=== PATIENT | female | born 1935 | race Caucasian/White ===

== ENCOUNTER 2017-04-29 13:04 | Emergency (ER) | payer MEDICARE, BC ==
[2017-04-29] MEDS: Nitroglycerin 0.4 MG Tab.SL SL PRN ×2 (13:06→13:12)
[2017-04-29] MEDS ORDERED: Morphine 2 MG/ML Syringe IVPUSH PRN (13:14)
[2017-04-29] MEDS ORDERED: Heparin Sodium/D5W 25,000 UNITS/500 ML BAG IV SCH ×2 (13:30→13:50)
[2017-04-29] MEDS: Sodium Chloride 0.9% 1,000 ML IV SCH ×2 (13:30→14:00)
[2017-04-29] MEDS ORDERED: Tenecteplase 50 MG Kit IV ONE (13:40)
[2017-04-29] MEDS ORDERED: Clopidogrel 75 MG Tab ONE (14:00)
[2017-04-29] MEDS ORDERED: atorvaSTATin 80 MG Tab ONE (14:20)
--- NOTE | 2017-04-29 15:46 | ER ---
HISTORY OF PRESENT ILLNESS: An 81-year-old female who comes in with her with complaints of chest pain. She tells us that she feels she is having a heart attack. She states the pain started about an hour ago as a severe pressure on her chest. She is pointing to the lower sternal area. She was just moving around her house doing some light duty activities when this happened. They came on suddenly. She states that she has been very sweaty and also nauseated. The patient rates her pain at 8/10. She did take one baby aspirin before coming into the emergency room. She denies any history of heart disease. She states that the medications she took today other than a baby aspirin were vitamin B12 and magnesium. OBJECTIVE: GENERAL APPEARANCE: The patient is awake, she is alert. She is diaphoretic. She is in obvious discomfort. VITAL SIGNS: Reviewed. Initially, the patient's blood pressure was in the 120s over 70s. Initial treatment plan, three more baby aspirin were given for a total of 4. The patient was also given nitro sublingually, 2 tablets 5 minutes apart. It did not seem to help her chest pain as soon as an IV was started. After this, she was given 2 mg of morphine and this brought her pain down to 6/10. Labs were ordered and a chest x-ray was ordered as well. An initial EKG showed ST elevation in anterior leads. A followup EKG of about 20-25 minutes later showed some improvement. The patient's condition started to deteriorate after she was here about 10 minutes. Her blood pressure dropped down into the 70s over 50 range. She was given a bolus of normal saline 500 mL. At this point, I had consulted with the ED [place] doctor. The patient was cleared for TNKase. By this time, we had the advisor consultant from [place], Dr. Hester available by telephone. I relayed the patient's information to him and it was determined that we would go ahead with TNKase followed by a heparin bolus of 4000, followed by heparin drip of 900 an hour. Plavix will be given 300 mg p.o. and Lipitor 80. The patient was given TNKase 40 mg per protocol. By this time, she is starting to feel a little better within a matter of another 10 minutes or so. She started to feel obviously better. She looked better. She states her pain is dropping. A followup EKG showed a normal sinus rhythm at this point. Within 15 minutes of having TNKase, the patient states her pain is almost totally resolved. She is now more awake and smiley in nature. She is no longer diaphoretic. LAB WORK: CBC and comprehensive metabolic panel are normal. DIAGNOSIS: ST-elevation myocardial infarction. TREATMENT PLAN: The patient was transferred to [facility] in [place] per Dr. Hester's direction. She was transferred by [facility] with [facility]. Upon leaving our facility, she was pain free, talking freely and smiley in nature. CRS/MODL /[id number]
[2017-04-29] MEDS ORDERED: Heparin Sodium 5,000 UNITS/0.5 ML Syringe IVPUSH ONE (19:41)
[2017-04-29] MEDS ORDERED: Aspirin 81 MG Tab.Chew PO ONE (19:42)
[2017-04-29 20:13] VITALS: BP 146/70
[2017-04-29] MEDS ORDERED: Sodium Chloride 0.9% 1,000 ML IV SCH (20:45)
--- NOTE | 2017-04-30 12:25 | CR ---
DATE OF SERVICE: 04/29/17 CLINICAL DATA: chest pain AP CHEST: No priors. The heart is mildly enlarged. There is calcification of the aortic arch. There are linear densities in both lower lungs, consistent with linear atelectasis or fibrosis. The lungs are otherwise clear. The patient is status post bilateral shoulder arthroplasty. [id number] [facility]
== END 2017-04-29 14:30 ==
LOC: LB.ED 13:04
DX: I21.09 ST elevation (STEMI) myocardial infarction involving other coronary artery of anterior wall (principal)
CPT/HCPCS: 36415; 71045; 80053; 84484; 85025; 93005; 99285; A9270; J1644; J2270; J3101; J7040

== ENCOUNTER 2017-06-30 10:13 | Emergency (ER) | payer MEDICARE, BC ==
[2017-06-30] MEDS ORDERED: Aspirin 81 MG Tab.Chew PO ONE (10:56)
[2017-06-30] MEDS ORDERED: Nitroglycerin 0.4 MG Tab.SL SL PRN (10:57)
[2017-06-30] MEDS ORDERED: Clopidogrel 75 MG Tab PO ONE (12:53)
[2017-06-30] MEDS ORDERED: Heparin Sodium 1,000 Units/ML 10 ML MDV IV ONE (12:53)
[2017-06-30] MEDS ORDERED: Heparin Sodium/D5W 25,000 UNITS/500 ML BAG IV SCH (13:15)
--- NOTE | 2017-06-30 13:48 | ER ---
DATE OF SERVICE: 06/30/2017 HISTORY OF PRESENT ILLNESS: An 82-year-old lady who comes over from physical therapy with complaints of chest pressure and chest pain. She rates her pain at 2/10 today. She tells me it started yesterday at home and it was worse yesterday. Her pain was about 5/10. She was supposed to go to cardiac rehab yesterday, but stayed home because she was not feeling good. This morning, she felt better, so she thought she should come in and Physical Therapy did a quick evaluation and decided she needed to be worked up for chest pain. The patient states that most of her feeling is centrally located in the chest and it is a pressure more than a pain. She is not having any problems with breathing. She does not feel nauseated. She has not been taking any [id number] medications for chest pain. PAST MEDICAL HISTORY: Includes coronary artery disease with a STEMI on April, initially evaluated here. She was transferred to [facility] at that time and has since been following up with Cardiology in [place], namely Dr. Tirado, but she just saw Dr. Tirado 2 days ago. She has not been taking any of the suggested medications for heart disease, instead she tells me that she wanted to try homeopathic medications because she was scared of the side effects from the other meds. She now realizes that was probably a mistake and tells me that she is ready to take whatever medication is suggested. She tells me Dr. Tirado was going to give her 5 different medications and it sounds like they had a conversation 2 days ago and was then talked about the importance of being treated medically versus using just homeopathic options. OBJECTIVE: GENERAL APPEARANCE: The patient is awake and alert. She is in no obvious distress. VITAL SIGNS: Reviewed. Initial blood pressure is 147/58, she is afebrile, O2 sats are good at 96%. CARDIAC: Heart sounds distinct. S1, S2 present. No murmurs noted. LUNGS: Clear. SKIN: Warm and dry. ORAL: Mucous membranes are moist. ABDOMEN: Soft and nontender. EXTREMITIES: No lower extremity edema is noted. INITIAL TREATMENT: Four baby aspirin were given to the patient, she chewed these up. She was then given one nitro, which resolved her chest pain completely. Second blood pressure reading was 110/78, dropping because of the nitro. LABORATORY DATA: Labs today include a CBC, which has an elevated platelet count of 612, otherwise unremarkable. Comprehensive metabolic panel is okay/normal. Troponin level is normal as well. Chest x-ray is unremarkable. DIAGNOSIS: Unstable angina. TREATMENT PLAN: I did consult with both the hospitalist in [place], Dr. Canela as well as Dr. Tirado, jig boring machine operator for metal, who happened to be on-call today. The patient will be transferred to their facility for further evaluation and workup. The patient was started on Plavix 300 mg orally as well as a heparin bolus of 4000 units followed by heparin drip of [address] Tirado's orders. She has so far remained pain-free after the first nitro tablet, and the patient is agreeable with the treatment plan. [facility] is expected here in approximately 30 minutes. Addendum; Patient remained pain free for the remainder of her stay here. CAMILA/VESNA /[id number] MTDZac
[2017-06-30 13:52] VITALS: BP 146/64
--- NOTE | 2017-06-30 17:57 | CR ---
DATE OF SERVICE: 06/30/17 CLINICAL DATA: chest pain AP PORTABLE CHEST: Comparison is made to a prior exam dated 04/29/17. The heart and lungs are stable. No evidence of acute intrathoracic disease. [id number] [facility]
== END 2017-06-30 14:10 ==
LOC: LB.ED 10:13
DX: I20.0 Unstable angina (principal); I25.10 Atherosclerotic heart disease of native coronary artery without angina pectoris; Z79.899 Other long term (current) drug therapy
CPT/HCPCS: 36415; 71045; 80053; 84484; 85025; 93005; 96374; 99284; 99285-25; A9270-GY; J1644

== ENCOUNTER 2018-03-14 10:13 | Emergency (ER) | payer MEDICARE, BC ==
--- NOTE | 2018-03-14 10:37 | EDM.PDOC ---
ED HPI GENERAL MEDICAL PROBLEM - General Time Seen by Provider: 03/14/18 10:15 Source of Information: Reports: Patient History Limitations: Reports: No Limitations - History of Present Illness INITIAL COMMENTS - FREE TEXT/NARRATIVE: Pt is a 82 year old female with PMH of unstable angina with CAD, who has been scheduled for Cardia surgery consult in [place] for possible CABG. Pt claims that she was admitted to and discharge on 03/08/18. Apparently was in the clinic today to go over her cardiac cath results, when she feels dizzy and had precardiac chest pain which lasted for less then 2 minutes was asso with feels sweaty. She claims her chest pain resolved now. No shortness of breath, nausea or chest pressure.Her vital in the emergency room are stable. Heart rate in 60s and regular on groundwater monitoring technician. Onset: Today Onset Date: 03/14/18 Onset Time: 10:00 Location: Reports: Chest Quality: Reports: Ache Severity: Mild Improves with: Reports: None Worsens with: Reports: None Associated Symptoms: Denies: Confusion, Chest Pain, Cough, Diaphoresis, Fever/ Chills, Headaches, Nausea/Vomiting, Rash, Seizure, Shortness of Breath, Syncope , Weakness - Related Data Allergies Allergy/AdvReac Type Severity Reaction Status Date / Time aspirin AdvReac Mild Swelling Verified 06/30/17 10:34 Home Meds: Home Meds Aspirin 81 mg PO DAILY 06/30/17 [History] Ginkgo Biloba 40 mg PO DAILY 06/30/17 [History] Multivitamin [Multi-Day Vitamins] 1 each PO DAILY 06/30/17 [History] Gordon-3/DHA/Epa/Fish Oil [Gordon 3 500 Softgel] 1 each PO DAILY 06/30/17 [History ] Past Medical History HEENT History: Reports: Impaired Vision Cardiovascular History: Reports: IN Gastrointestinal History: Reports: Colon Polyp, Other (See Below) Other Gastrointestinal History: cyst [employer]IST History: Reports: Other [employer]IST History: hysterectomy Psychiatric History: Reports: Anxiety, Panic Attack - Infectious Disease History Infectious Disease History: Reports: Chicken Pox, Influenza, Measles, Mumps - Past Surgical History Female Surgical History: Reports: Hysterectomy Musculoskeletal Surgical History: Reports: Shoulder Replacement, Shoulder Surgery, Other (See Below) Social & Family History - Family History Family Medical History: Noncontributory - Caffeine Use Caffeine Use: Reports: None, Coffee Other Caffeine Use: decaff coffee ED ROS GENERAL - Review of Systems Review Of Systems: See Below Constitutional: Reports: Diaphoresis. Denies: Fever, Chills HEENT: Denies: Ear Pain, Eye Discharge, Rhinitis, Throat Pain, Throat Swelling Respiratory: Denies: Shortness of Breath, Wheezing, Pleuritic Chest Pain, Cough , Sputum Cardiovascular: Reports: Chest Pain, Lightheadedness GI/Abdominal: Denies: Abdominal Pain, Constipation, Distension, Nausea, Vomiting : Denies: Flank Pain, Frequency Musculoskeletal: Denies: Joint Pain, Joint Swelling Skin: Denies: Bruising, Pruritis, Rash, Erythema ED EXAM, GENERAL - Physical Exam Exam: See Below Exam Limited By: No Limitations General Appearance: Alert, WD/WN, No Apparent Distress, Anxious, Other (Has been chest pain free since she has been in the emergency room.) Eye Exam: Bilateral Eye: EOMI, PERRL Ears: Normal External Exam, Normal Canal, Hearing Grossly Normal, Normal TMs Ear Exam: Bilateral Ear: Auricle Normal, Canal Normal, TM normal Nose: Normal Inspection, Normal Mucosa, No Blood Throat/Mouth: Normal Inspection, Normal Lips, Normal Teeth, Normal Gums, Normal Oropharynx, Normal Voice, No Airway Compromise Head: Atraumatic, Normocephalic Neck: Normal Inspection, Supple, Non-Tender, Full Range of Motion Respiratory/Chest: No Respiratory Distress, Lungs Clear, Normal Breath Sounds, No Accessory Muscle Use, Chest Non-Tender Cardiovascular: Normal Peripheral Pulses, Regular Rate, Rhythm, No Edema, No Gallop, No JVD, No Murmur, No Rub GI/Abdominal: Normal Bowel Sounds, Soft, Non-Tender, No Organomegaly, No Distention, No Abnormal Bruit, No Mass Back Exam: Normal Inspection, Full Range of Motion, NT Extremities: Normal Inspection, Normal Range of Motion, Non-Tender, Normal Capillary Refill, No Pedal Edema Neurological: Alert, Oriented, CN II-XII Intact, Normal Cognition, Normal Gait, Normal Reflexes, No Motor/Sensory Deficits Skin Exam: Warm, Intact EKG INTERPRETATION EKG Date: 03/14/18 Rate (Beats/Min): 59 P-Wave: Present QRS: Normal ST-T: Normal QT: Normal Course - Vital Signs Text/Narrative:: Pt has short episodes of dull chest pain, with diaphoresis and dizziness when patient was waiting in the clinic. Rates her pain was 2/10, which resolved quickly by the time she was brought into emergency room.her EKG is in NSR and no ST changes noted. Does appear like angina, which resolved quickly without any treatment. Considering patient's history and recent angiogram finding. CBC , CMP and troponins were drawn. Her CBC is normal other than her platelets which are elevated at 846. CMP is stable. Troponin is negative. Pt was noted to have elevated platelets during her recent hospital stay of around 800, she has been scheduled to have further workup of her thrombocytosis by Hematology at . Pt reassured that she probably had angina episode, it resolved within 2 minutes and did not needs any treatment. her vitals are stable and has been chest pain free in the emergency room.I have advised her to covered her face with muffler or scarf when she is outdoor to avoid inhaling cold dry air which can trigger angina. She does have appointment with Dr. Post today( Patient expecting apollo from Dr. Post's office). I have discussed patient with Zoë Stewart , Cardio . Pt discharged home. - Orders/Labs/Meds Orders: Active Orders 24 hr Category Date Time Status EKG Documentation Completion [RC] ASDIRECTED Care 03/14/18 10:19 Active Labs: Laboratory Tests 03/14/18 03/14/18 Range/Units 10:20 10:20 WBC 8.8 D (4.0-11.0) K/uL RBC 4.74 (3.80-5.80) M/uL Hgb 13.7 (11.5-16.5) g/dL Hct 41.6 (37.0-47.0) % MCV 88 (76-96) fL MCH 28.9 (27.0-32.0) pg MCHC 32.9 (31.0-35.0) g/dL RDW 15.6 (11.0-16.0) % Plt Count 846 H* D (150-500) K/uL MPV 11.2 H (6.0-10.0) fL Neut % (Auto) 59.4 (45.0-70.0) % Lymph % (Auto) 16.2 L (20.0-40.0) % [place] % (Auto) 16.9 H (3.0-10.0) % Eos % (Auto) 5.8 H (1.0-5.0) % Baso % (Auto) 1.7 H (0.0-0.5) % Neut # (Auto) 5.25 (2.00-7.50) K/uL Lymph # (Auto) 1.43 L (1.50-4.00) K/uL [place] # (Auto) 1.49 H (0.20-0.80) K/uL Eos # (Auto) 0.51 H (0.04-0.40) K/uL Baso # (Auto) 0.15 H (0.02-0.10) K/uL Sodium 144 (136-145) mmol/L Potassium 4.2 (3.5-5.1) mmol/L Chloride 105 (98-107) mmol/L Carbon Dioxide 29.3 (21.0-32.0) mmol/L Anion Gap 13.9 (5.0-15.0) mmol/L BUN 17 D (8-26) mg/dL Creatinine 0.95 D (0.55-1.02) mg/dL Est Cr Clr Drug Dosing TNP Estimated GFR (MDRD) 56 L (>60) MLS/MIN BUN/Creatinine Ratio 17.9 (6-25) Glucose 110 H (74-100) mg/dL Calcium 8.7 (8.5-10.1) mg/dL Total Bilirubin 0.4 D (0.0-1.0) mg/dL AST 20 (15-37) U/L ALT 17 (12-78) U/L Alkaline Phosphatase 58 (46-116) U/L Troponin I 0.019 (0.000-0.060) ng/mL Total Protein 6.6 (6.4-8.2) g/dL Albumin 3.3 L (3.4-5.0) g/dL Globulin 3.3 (2.2-4.2) g/dL Albumin/Globulin Ratio 1.0 (0.8-2.0) Departure - Departure Time of Disposition: 11:30 Disposition: Home, Self-Care 01 Condition: Fair Clinical Impression: Angina pectoris - Discharge Information *PRESCRIPTION DRUG MONITORING PROGRAM REVIEWED*: Not Applicable *COPY OF PRESCRIPTION DRUG MONITORING REPORT IN PATIENT RUBEN: Not Applicable Instructions: Angina Pectoris, [id number] Referrals: PCP,Unknown [Primary Care Provider] - Additional Instructions: Follow up with Video Editing Intern as scheduled. Cover face when going outside in cold air to not trigger Angina - Problem List & Annotations (1) Angina pectoris SNOMED Code(s): 458475506 Code(s): I20.9 - ANGINA PECTORIS, UNSPECIFIED Status: Acute - Problem List Review Problem List Initiated/Reviewed/Updated: Yes - My Orders Last 24 Hours: My Active Orders 03/14/18 10:19 EKG Documentation Completion [RC] ASDIRECTED - Assessment/Plan Last 24 Hours: My Active Orders 03/14/18 10:19 EKG Documentation Completion [RC] ASDIRECTED Assessment:: Angina Plan: Pt has short episodes of dull chest pain, with diaphoresis and dizziness when patient was waiting in the clinic. Rates her pain was 2/10, which resolved quickly by the time she was brought into emergency room.her EKG is in NSR and no ST changes noted. Does appear like angina, which resolved quickly without any treatment. Considering patient's history and recent angiogram finding. CBC , CMP and troponins were drawn. Her CBC is normal other than her platelets which are elevated at 846. CMP is stable. Troponin is negative. Pt was noted to have elevated platelets during her recent hospital stay of around 800, she has been scheduled to have further workup of her thrombocytosis by Hematology at . Pt reassured that she probably had angina episode, it resolved within 2 minutes and did not needs any treatment. her vitals are stable and has been chest pain free in the emergency room.I have advised her to covered her face with muffler or scarf when she is outdoor to avoid inhaling cold dry air which can trigger angina. She does have appointment with Dr. Post today( Patient expecting apollo from Dr. Post's office). I have discussed patient with Zoë Stewart , Cardio . Pt discharged home.
== END 2018-03-14 11:21 | disposition home or self-care (01) ==
LOC: LB.ED 10:13
DX: I20.9 Angina pectoris, unspecified (principal); Z79.82 Long term (current) use of aspirin; Z79.899 Other long term (current) drug therapy; Z88.6 Allergy status to analgesic agent
CPT/HCPCS: 36415; 80053; 84484; 85025; 93005; 99284; 99285-25

== ENCOUNTER 2020-04-07 11:20 | Emergency (ER) | payer MEDICARE, BC ==
[2020-04-07] MEDS: Aspirin 81 MG Tab.Chew PO ONE ×2 (11:45→12:57)
[2020-04-07 12:33] VITALS: BP 135/62; PULSE 73
[2020-04-07] MEDS ORDERED: Nitroglycerin 0.4 MG Tab.SL SL PRN (12:54)
--- NOTE | 2020-04-07 13:11 | CR ---
DATE OF SERVICE: 04/07/2020 CLINICAL DATA: Chest tightness x 2 months. PA AND LATERAL CHEST: No priors. The heart is mildly enlarged. The aorta is calcified and ectatic. The lungs are clear. No pneumothorax. No pleural effusions. The patient is status post left and right shoulder arthroplasty. There is slight anterior wedging of a couple upper thoracic and lower thoracic vertebrae, age indeterminate. No evidence of acute intrathoracic disease. [id number] [facility]
--- NOTE | 2020-04-07 14:59 | EDM.PDOC ---
ED HPI GENERAL MEDICAL PROBLEM - General Chief Complaint: General Stated Complaint: edema/chest pain Time Seen by Provider: 04/07/20 12:00 Source of Information: Reports: Patient - History of Present Illness INITIAL COMMENTS - FREE TEXT/NARRATIVE: 84 year old female known patient of CAD ,myelofibrosis & hypercholesterolemia present ed to ER due to c/o edema /chest pain started for the last few days .She was in clinic today & referred by melvi Roland NP foe evaluation -The patient told that she had fluid around her heart -& she feels tightness of chest on walking - she is out of breath after 300 feet .She is on hydroxy urea for myelofibrosis.The pain is just pressure like -located retrosternal & relieved by nitro she said that she was raftered for CABG two years back & she missed the appointment. Denies fever,nausea ,vomiting ,headache,blurry vision ,wheezing ,abd pain Onset: Today, Gradual Duration: Day(s): (1) Location: Reports: Chest Quality: Reports: Pressure Improves with: Reports: None Worsens with: Reports: None, Movement - Related Data Allergies Allergy/AdvReac Type Severity Reaction Status Date / Time aspirin AdvReac Mild Swelling Verified 06/30/17 10:34 Home Meds: Home Meds Aspirin 81 mg PO DAILY 06/30/17 [History] Ginkgo Biloba 40 mg PO DAILY 06/30/17 [History] Multivitamin [Multi-Day Vitamins] 1 each PO DAILY 06/30/17 [History] Perry-3/DHA/Epa/Fish Oil [Perry 3 500 Softgel] 1 each PO DAILY 06/30/17 [History] Past Medical History HEENT History: Reports: Impaired Vision Cardiovascular History: Reports: CA Gastrointestinal History: Reports: Colon Polyp Other Gastrointestinal History: cyst [employer]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 Psychiatric History: Reports: Anxiety, Panic Attack Other Hematologic History: 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 Other Oncologic History: pt states she has a history of a rare blood cancer does not remember the name - Infectious Disease History Infectious Disease History: Reports: Chicken Pox, Influenza, Measles, Mumps - Past Surgical History Female Surgical History: Reports: Hysterectomy Other Female Surgeries/Procedures: ovarian cyst (history) Musculoskeletal Surgical History: Reports: Shoulder Replacement, Shoulder Surgery, Other (See Below) Other Musculoskeletal Surgeries/Procedures:: Left reverse total shoulder, 2015 Social & Family History - Family History Family Medical History: No Pertinent Family History - Tobacco Use Tobacco Use Status *Q: Never Tobacco User - Caffeine Use Caffeine Use: Reports: Coffee Other Caffeine Use: decaff coffee - Recreational Drug Use Recreational Drug Use: No ED ROS GENERAL - Review of Systems Review Of Systems: See Below Constitutional: Reports: No Symptoms HEENT: Reports: No Symptoms Respiratory: Reports: Shortness of Breath Cardiovascular: Reports: Chest Pain, Edema GI/Abdominal: Reports: No Symptoms Neurological: Reports: No Symptoms, Dizziness ED EXAM, GENERAL - Physical Exam Exam: See Below Exam Limited By: No Limitations General Appearance: Alert, WD/WN, No Apparent Distress Respiratory/Chest: No Respiratory Distress, Lungs Clear, Normal Breath Sounds, No Accessory Muscle Use, Chest Non-Tender GI/Abdominal: Normal Bowel Sounds, Soft, Non-Tender, No Organomegaly, No Distention, No Abnormal Bruit, No Mass, Pelvis Stable Neurological: Alert, Oriented, CN II-XII Intact Course - Vital Signs Text/Narrative:: 84 yearold female came with chest pain Vitals monitored labs ordered EKG done that shows some changes ,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 Troponin was .330 D-dimer less than 100 Pt was given aspirin & nitro pain improved patient was feeling better - Disposition= patient was discharged home F/U - appointment made with Mark Apodaca on Mar 2020 Condition of patient at discharge -stable Last Recorded V/S: Last Vital Signs Temp 97.3 F 04/07/20 12:32 Pulse 73 04/07/20 12:32 Resp 16 04/07/20 12:32 BP 135/62 04/07/20 12:32 Pulse Ox 98 04/07/20 12:32 - Orders/Labs/Meds Labs: Laboratory Tests 04/07/20 04/07/20 04/07/20 Range/Units 11:42 11:54 11:54 WBC 6.1 D (4.0-11.0) K/uL RBC 4.11 (3.80-5.80) M/uL Hgb 14.0 (11.5-16.5) g/dL Hct 41.5 (37.0-47.0) % MCV 101 H (76-96) fL MCH 34.1 H (27.0-32.0) pg MCHC 33.7 (31.0-35.0) g/dL RDW 17.9 H (11.0-16.0) % Plt Count 355 D (150-500) K/uL MPV 11.0 H (6.0-10.0) fL Neut % (Auto) 52.8 (45.0-70.0) % Lymph % (Auto) 21.4 (20.0-40.0) % Coke % (Auto) 18.9 H (3.0-10.0) % Eos % (Auto) 5.3 H (1.0-5.0) % Baso % (Auto) 1.6 H (0.0-0.5) % Neut # (Auto) 3.21 (2.00-7.50) K/uL Lymph # (Auto) 1.30 L (1.50-4.00) K/uL Coke # (Auto) 1.15 H (0.20-0.80) K/uL Eos # (Auto) 0.32 (0.04-0.40) K/uL Baso # (Auto) 0.10 (0.02-0.10) K/uL PT (9.0-11.5) sec INR (1.0-3.5) D-Dimer, Quantitative (0-400) ng/mL Sodium 142 (136-145) mmol/L Potassium 4.2 (3.5-5.1) mmol/L Chloride 106 (98-107) mmol/L Carbon Dioxide 28.6 (21.0-32.0) mmol/L Anion Gap 11.6 (5.0-15.0) mmol/L BUN 25 D (8-26) mg/dL Creatinine 0.87 (0.55-1.02) mg/dL Est Cr Clr Drug Dosing TNP Estimated GFR (MDRD) > 60 (>60) MLS/MIN BUN/Creatinine Ratio 28.7 H (6-25) Glucose 106 H (74-100) mg/dL Calcium 8.3 L (8.5-10.1) mg/dL Troponin I 0.033 D (0.000-0.060) ng/mL B-Natriuretic Peptide 434 (0-450) pg/mL 04/07/20 04/07/20 Range/Units 11:54 11:54 WBC (4.0-11.0) K/uL RBC (3.80-5.80) M/uL Hgb (11.5-16.5) g/dL Hct (37.0-47.0) % MCV (76-96) fL MCH (27.0-32.0) pg MCHC (31.0-35.0) g/dL RDW (11.0-16.0) % Plt Count (150-500) K/uL MPV (6.0-10.0) fL Neut % (Auto) (45.0-70.0) % Lymph % (Auto) (20.0-40.0) % Coke % (Auto) (3.0-10.0) % Eos % (Auto) (1.0-5.0) % Baso % (Auto) (0.0-0.5) % Neut # (Auto) (2.00-7.50) K/uL Lymph # (Auto) (1.50-4.00) K/uL Coke # (Auto) (0.20-0.80) K/uL Eos # (Auto) (0.04-0.40) K/uL Baso # (Auto) (0.02-0.10) K/uL PT 10.6 (9.0-11.5) sec INR 1.0 (1.0-3.5) D-Dimer, Quantitative < 100 (0-400) ng/mL Sodium (136-145) mmol/L Potassium (3.5-5.1) mmol/L Chloride (98-107) mmol/L Carbon Dioxide (21.0-32.0) mmol/L Anion Gap (5.0-15.0) mmol/L BUN (8-26) mg/dL Creatinine (0.55-1.02) mg/dL Est Cr Clr Drug Dosing Estimated GFR (MDRD) (>60) MLS/MIN BUN/Creatinine Ratio (6-25) Glucose (74-100) mg/dL Calcium (8.5-10.1) mg/dL Troponin I (0.000-0.060) ng/mL B-Natriuretic Peptide (0-450) pg/mL Meds: Medications Discontinued Medications Generic Name Dose Route Start Last Admin Trade Name Wilbertq PRN Reason Stop Dose Admin Aspirin 324 mg 04/07/20 12:54 04/07/20 12:57 Aspirin PO 04/07/20 12:55 324 mg ONETIME ONE Administration Nitroglycerin 0.4 mg 04/07/20 12:54 04/07/20 11:45 Nitrostat SL 0.4 mg Q5M PRN Administration Chest Pain Departure - Departure Time of Disposition: 14:20 Disposition: Home, Self-Care 01 Condition: Fair Clinical Impression: Angina pectoris, Unstable angina - Discharge Information *PRESCRIPTION DRUG MONITORING PROGRAM REVIEWED*: No *COPY OF PRESCRIPTION DRUG MONITORING REPORT IN PATIENT RUBEN: No Instructions: Decision Aid - Coronary Artery Disease, Angina Care Plan Goals: Continue taking same medications as you normally do. Follow up with Mark Apodaca on April 22 at 1130. Return to ER if needed. Sepsis Event Note (ED) - Evaluation Sepsis Screening Result: No Definite Risk - Focused Exam Vital Signs: Vital Signs Temp Pulse Resp BP BP Pulse Ox 04/07/20 12:32 97.3 F 73 16 135/62 98 04/07/20 11:45 135/62 - Problem List & Annotations (1) Angina of effort SNOMED Code(s): 119223544 Code(s): I20.8 - OTHER FORMS OF ANGINA PECTORIS Status: Acute Priority: Medium Onset Date: ~04/07/20 (2) Shortness of breath SNOMED Code(s): 018350992 Code(s): R06.02 - SHORTNESS OF BREATH Status: Acute Priority: Medium Onset Date: ~04/07/20
== END 2020-04-07 14:34 | disposition home or self-care (01) ==
LOC: LB.ED 11:20
DX: I20.0 Unstable angina (principal); I25.2 Old myocardial infarction; Z88.6 Allergy status to analgesic agent; Z79.82 Long term (current) use of aspirin
CPT/HCPCS: 36415; 71046; 80048; 83880; 84484; 85025; 85379; 85610; 93005; 99284; 99285-25; A9270-GY